=== PATIENT | female | born 1960 | race Caucasian/White ===

== ENCOUNTER 2018-09-19 08:49 | Emergency (ER) | payer MEDICARE, OTHER ==
[~2018-09-19] VITALS: Ht 152.4 cm; Wt 97.1 kg
[2018-09-19 09:10] VITALS: BP 166/86
--- NOTE | 2018-09-19 09:14 | NUR ---
patient presented to the ER c/o right knee pain for 1 1/2 month. On room air, breathing evenly and unlabored. kept comfortable, will continue to monitor accordingly. Waiting for MD for eval.
--- NOTE | 2018-09-19 10:50 | NUR ---
Patient discharged to home in stable condition. Written and verbal after care instructions given. Patient verbalizes understanding of instruction.
== END 2018-09-19 10:50 | disposition home or self-care (01) ==
LOC: ER 08:59
DX: M25.561 Pain in right knee (principal); I10 Essential (primary) hypertension; E11.9 Type 2 diabetes mellitus without complications
CPT/HCPCS: 93971-TC